=== PATIENT | female | born 1955 | race Caucasian/White ===

== ENCOUNTER → 2021-09-24 13:28 | Outpatient (BNVA) | payer MEDICARE, BC, SELFPAY | PROVIDERS: PCP Internal Medicine; Visit Provider Psychiatry & Neurology Neurology | DX: G20 Parkinson's disease (principal); R25.1 Tremor, unspecified | CPT/HCPCS: 99212 ==

== ENCOUNTER → 2022-06-24 13:49 | Outpatient (BNVA) | payer MEDICARE, BC, SELFPAY | PROVIDERS: PCP Internal Medicine; Visit Provider Psychiatry & Neurology Neurology | DX: G20 Parkinson's disease (principal); G24.9 Dystonia, unspecified; M54.9 Dorsalgia, unspecified | CPT/HCPCS: 99212 ==

== ENCOUNTER → 2022-09-14 15:51 | Outpatient (BNVA) | payer MEDICARE, BC, SELFPAY | PROVIDERS: PCP Internal Medicine; Visit Provider Psychiatry & Neurology Neurology | DX: G20 Parkinson's disease (principal); G24.9 Dystonia, unspecified; M54.9 Dorsalgia, unspecified | CPT/HCPCS: 99212 ==

== ENCOUNTER 2023-01-28 14:12 | Outpatient (AMB) | payer MEDICARE, BC, SELFPAY ==
--- NOTE | 2023-01-28 14:15 | MHC.OFFVIS ---
Intake Vital Signs 01/28/23 14:21 Weight 173 lb BP 118/76 Blood Pressure Location Lt brachial Position Sitting Pulse 75 Pulse Source Pulse Oximeter Pulse Oximetry (%) 98 Oxygen Delivery Method Room Air Intake Visit Reasons: 4m follow up parkinsons-CONFIRMED Intake Note: Pt presents for Parkinsons fup Allergies No Known Allergies Allergy (Verified 01/28/23 14:24) Medication List - Last Reconciled 01/28/23 by Natasha Toscano MD amantadine HCl 100 mg PO DAILY apixaban (Eliquis) 5 mg PO BID aspirin 81 mg PO DAILY atorvastatin 20 mg PO DAILY carbidopa-levodopa 25-100 mg 1 tab PO .5 times a day 90 days levothyroxine (Levoxyl) 75 mcg PO DAILY metoprolol succinate ER 25 mg PO QDAY metronidazole 0.75% 1 appl topical DAILY multivitamin 1 tab PO DAILY HPI HPI Comments History of Present Illness Details 67y/o right handed female comes for follow up of Parkinsons disease.she had a stroke on November 09 2022 - expressive aphasia, dizziness , right leg weakness . SHe was admitted at [facility] -MRI Brain showed a stroke.she recovered in less than 1 hr. she was in rehab , no residual effects.Loop monitor showed paroxysmal atrial fibrillation and is now on Eliquis. she has home PT and OT . Her balance is poor but no falls. she uses a walker . she has stiffness in her lower backHer Xray showed compression fractures . she Denies pain She is doing good. Memory is good. SLeep- good no active dreams Mood- good She is motivated No drooling. speech is good Handwriting- smaller She is independent in all ADLs. Tremors are well controlled. she is exercising regularly. No problem dressing or eating No hallucinations Bowel movements are stable. [facility] Medical History (Updated 01/28/23 @ 14:52 by Natasha Toscano MD) Sleep disorder Atrial fibrillation CVA (cerebral vascular accident) Arthritis Hypothyroidism Hyperlipidemia HTN (hypertension) Surgical History History of tooth extraction History of hip surgery Family History Father Cancer Mother HTN (hypertension) Thyroid disease Family/Other Seizures Family/Other Thyroid disease Social History Alcohol intake: current Alcohol intake frequency: 0-2 drinks per day Patient Tobacco Use Status: Never used Tobacco Use of substances other than those prescribed or required for medical reasons: No Physical Exam Vital Signs: Last Vital Signs Pulse 75 01/28/23 14:21 BP 118/76 01/28/23 14:21 Pulse Ox 98 01/28/23 14:21 Oxygen Delivery Method Room Air 01/28/23 14:21 Const General: cooperative, healthy appearing and comfortable Nutritional Appearance: body habitus not average Orientation/consciousness: patient oriented x3 Neuro Other: mildly decreased blink , facial expression speech normal Bradykinesia - r.L FFM severely decreased R>LFoot taps decreased R>L gait slow small steps General: patient oriented x3 Assessment & Plan Assessment & Plan (1) Parkinson's disease: Code(s): G20 - Parkinson's disease (2) Dyskinesia: Code(s): G24.9 - Dystonia, unspecified (3) Back pain: Code(s): M54.9 - Dorsalgia, unspecified (4) CVA (cerebral vascular accident): Code(s): I63.9 - Cerebral infarction, unspecified Plan Increase sinemet 25/100 1 tab 5 times a day amantadine 100mg qd XR LS spine shows compression fractures - discussed about kyphoplasty , she is not in pain so declines F/u with cardiology SLeep study to r/o sleep apnea. Continue exercise Orders: Orders RT home sleep study Today G47.9 - Sleep disorder, unspecified, I48.91 - Unspecified atrial fibrillation Medications: Changed From carbidopa-levodopa 25-100 mg 1 tab PO QID 90 days 360 tabs 3RF To carbidopa-levodopa 25-100 mg 1 tab PO .5 times a day 450 tabs 3RF 90 days Coding Level of Care Code Est Pt Level 4 (65398) Diagnoses Parkinson's disease G20 Dyskinesia G24.9 Back pain M54.9 CVA (cerebral vascular accident) I63.9
[2023-01-28 14:21] VITALS: BP 118/76; PULSE 75; O2SAT 98
== END 2023-01-28 14:55 | disposition home or self-care (01) ==
PROVIDERS: Visit Provider Psychiatry & Neurology Neurology
DX: G20 Parkinson's disease (principal); G24.01 Drug induced subacute dyskinesia; T42.8X Poisoning by, adverse effect of and underdosing of antiparkinsonism drugs and other central muscle-tone depressants; I69.398 Other sequelae of cerebral infarction; M54.9 Dorsalgia, unspecified
CPT/HCPCS: 99214

== ENCOUNTER → 2023-01-28 14:12 | Outpatient (BNVA) | payer MEDICARE, BC, SELFPAY | PROVIDERS: Visit Provider Psychiatry & Neurology Neurology | DX: G20 Parkinson's disease (principal); G24.9 Dystonia, unspecified; M54.9 Dorsalgia, unspecified; Z86.73 Personal history of transient ischemic attack (TIA), and cerebral infarction without residual deficits; Z79.899 Other long term (current) drug therapy | CPT/HCPCS: 99212 ==

== ENCOUNTER → 2023-03-14 14:48 | Outpatient (REF) | payer MEDICARE, BC, SELFPAY | LOC: HO.SL 14:48 | PROVIDERS: PCP Internal Medicine; Visit Provider Psychiatry & Neurology Neurology | DX: G47.9 Sleep disorder, unspecified (principal); I48.91 Unspecified atrial fibrillation | CPT/HCPCS: 95806 ==

== ENCOUNTER → 2023-03-14 15:03 | Outpatient (BNV) | payer MEDICARE, BC, SELFPAY | PROVIDERS: PCP Internal Medicine; Visit Provider Psychiatry & Neurology Neurology | DX: R06.83 Snoring (principal) | CPT/HCPCS: 95806 ==

== ENCOUNTER → 2023-06-13 14:45 | Outpatient (BNVA) | payer MEDICARE, BC, SELFPAY | PROVIDERS: PCP Internal Medicine; Visit Provider Psychiatry & Neurology Neurology | DX: G20.A1 Parkinson's disease without dyskinesia, without mention of fluctuations (principal); G24.9 Dystonia, unspecified; M54.9 Dorsalgia, unspecified; Z86.73 Personal history of transient ischemic attack (TIA), and cerebral infarction without residual deficits; Z79.899 Other long term (current) drug therapy | CPT/HCPCS: 99212 ==

== ENCOUNTER 2023-06-13 14:56 | Outpatient (AMB) | payer MEDICARE, BC, SELFPAY ==
--- NOTE | 2023-06-13 15:23 | A.OFFVIS_ITS ---
Intake Vital Signs 06/13/23 15:25 Height 5 ft 2 in Weight 175 lb BMI 32.0 BP 154/82 H Blood Pressure Location Lt brachial Position Sitting Respiration 18 Pulse 72 Pulse Source Pulse Oximeter Pulse Oximetry (%) 97 Oxygen Delivery Method Room Air Intake Visit Reasons: 3 mnts f/u - CONF Intake Note: Pt presents for a 5 month follow up for Parkinson's. Hematology Oncology Consultant Required: No Allergies No Known Allergies Allergy (Verified 06/13/23 15:25) Medication List - Last Reconciled 06/13/23 by Natasha Toscano MD amantadine HCl 100 mg PO DAILY apixaban (Eliquis) 5 mg PO BID aspirin 81 mg PO DAILY atorvastatin 20 mg PO DAILY carbidopa-levodopa 25-100 mg 1 tab PO .5 times a day 90 days levothyroxine (Levoxyl) 75 mcg PO DAILY metoprolol succinate ER 25 mg PO QDAY metronidazole 0.75% 1 appl topical DAILY multivitamin 1 tab PO DAILY HPI HPI Comments History of Present Illness Details 68y/o right handed female comes for foll ow up of Parkinsons disease. Her balance is poor but no falls. she uses a walker . she has stiffness in her lower back Her Xray showed compression fractures . she Denies pain She is doing good. Memory is good. SLeep- good no active dreams - vivid dreams Mood- good She is motivated. she is trying tod o exercises that home Pt taught her No drooling. speech is good Handwriting- smaller She is independent in all ADLs.she uses a shower chair and her helps with washing her hair. Tremors are well controlled. she is exercising regularly. No problem dressing or eating No hallucinations Bowel movements are stable. [facility] Medical History Sleep disorder Atrial fibrillation CVA (cerebral vascular accident) Arthritis Hypothyroidism Hyperlipidemia HTN (hypertension) Surgical History History of tooth extraction History of hip surgery Family History Father Cancer Mother HTN (hypertension) Thyroid disease Family/Other Seizures Family/Other Thyroid disease Social History Alcohol intake: current Alcohol intake frequency: 0-2 drinks per day Patient Tobacco Use Status: Never used Tobacco Physical Exam Vital Signs: Last Vital Signs Pulse 72 06/13/23 15:25 Resp 18 06/13/23 15:25 BP 154/82 H 06/13/23 15:25 Pulse Ox 97 06/13/23 15:25 Oxygen Delivery Method Room Air 06/13/23 15:25 BMI result Body Mass Index 32.0 Const General: cooperative, healthy appearing and comfortable Nutritional Appearance: body habitus not average Orientation/consciousness: patient oriented x3 Neuro Other: mildly decreased blink , facial expression speech normal Bradykinesia - r.L FFM severely decreased R>LFoot taps decreased R>L gait slow small steps General: patient oriented x3 Assessment & Plan Assessment & Plan (1) Parkinson's disease: Code(s): G20 - Parkinson's disease (2) Dyskinesia: Code(s): G24.9 - Dystonia, unspecified (3) Back pain: Code(s): M54.9 - Dorsalgia, unspecified (4) CVA (cerebral vascular accident): Code(s): I63.9 - Cerebral infarction, unspecified Plan sinemet 25/100 1 tab 5 times a day amantadine 100mg qd XR LS spine shows compression fractures - discussed about kyphoplasty , she is not in pain so declines F/u with cardiology SLeep study to r/o sleep apnea- normal Continue exercise will restart home PT as needed Medications: Refilled carbidopa-levodopa 25-100 mg 1 tab PO .5 times a day 90 days 450 tabs 3RF amantadine HCl 100 mg PO DAILY 30 caps 6RF Coding Level of Care Code Est Pt Level 4 (56168) Diagnoses Parkinson's disease G20 Dyskinesia G24.9 Back pain M54.9 CVA (cerebral vascular accident) I63.9
[2023-06-13 15:25] VITALS: BP 154/82; PULSE 72; RESP 18; O2SAT 97; BMI 32.0
== END 2023-06-13 15:54 | disposition home or self-care (01) ==
PROVIDERS: PCP Internal Medicine; Visit Provider Psychiatry & Neurology Neurology
DX: G20.B1 Parkinson's disease with dyskinesia, without mention of fluctuations (principal); M54.9 Dorsalgia, unspecified; I69.398 Other sequelae of cerebral infarction
CPT/HCPCS: 99214

== ENCOUNTER 2023-12-30 13:33 | Outpatient (AMB) | payer MEDICARE, BC, SELFPAY ==
--- NOTE | 2023-12-30 13:39 | A.OFFVIS_ITS ---
Vital Signs 12/30/23 13:41 Height 5 ft 2 in Weight 165 lb BMI 30.2 BP 138/76 Blood Pressure Location Rt brachial Position Sitting Respiration 16 Pulse 64 Pulse Source Pulse Oximeter Pulse Oximetry (%) 97 Oxygen Delivery Method Room Air Intake Visit Reasons: 6m follow up - Confirmed Intake Note: Pt presents to the office for a 6 month follow up for Parkinson's and back pain. [employer]ular Knife [employer] Machine Required: No Allergies No Known Allergies Allergy (Verified 12/30/23 13:41) Medication List - Last Reconciled 12/30/23 by Natasha Toscano MD amantadine HCl 100 mg PO DAILY apixaban (Eliquis) 5 mg PO BID aspirin 81 mg PO DAILY atorvastatin 20 mg PO DAILY carbidopa-levodopa 25-100 mg 1 tab PO .5 times a day 90 days levothyroxine (Levoxyl) 75 mcg PO DAILY metoprolol succinate ER 25 mg PO QDAY metronidazole 0.75% 1 appl topical DAILY multivitamin 1 tab PO DAILY HPI Comments Details: 68y/o right handed female comes for follow up of Parkinsons disease. No falls she uses a walker . she has stiffness in her lower back Her Xray showed compression fractures . she Denies pain She is doing good. Memory is good. SLeep- good no active dreams - vivid dreams Mood- good She is motivated. she is trying tod o exercises that home Pt taught her No drooling. speech is good Handwriting- smaller She is independent in all ADLs.she uses a shower chair and her helps with washing her hair. Tremors are well controlled. she is exercising regularly. No problem dressing or eating No hallucinations Bowel movements are stable. [facility] Medical History Parkinson's disease with fluctuating manifestations Sleep disorder Atrial fibrillation CVA (cerebral vascular accident) Arthritis Hypothyroidism Hyperlipidemia HTN (hypertension) Surgical History History of tooth extraction History of hip surgery Family History Father Cancer Mother HTN (hypertension) Thyroid disease Family/Other Seizures Family/Other Thyroid disease Social History Alcohol intake: current Alcohol intake frequency: 0-2 drinks per day Patient Tobacco Use Status: Never used Tobacco Physical Exam Vital Signs: Last Vital Signs Pulse 64 12/30/23 13:41 Resp 16 12/30/23 13:41 BP 138/76 12/30/23 13:41 Pulse Ox 97 12/30/23 13:41 Oxygen Delivery Method Room Air 12/30/23 13:41 BMI result Body Mass Index 30.2 Const General: cooperative, healthy appearing and comfortable Nutritional Appearance: body habitus not average Orientation/consciousness: patient oriented x3 Neuro Other: mildly decreased blink , facial expression speech normal Bradykinesia - r.L FFM severely decreased R>LFoot taps decreased R>L gait slow small steps General: patient oriented x3 Assessment & Plan Assessment & Plan (1) Parkinson's disease with fluctuating manifestations: Code(s): G20.A2 - Parkinson's disease without dyskinesia, with fluctuations Category: Medical (2) Back pain: Code(s): M54.9 - Dorsalgia, unspecified Category: Medical (3) CVA (cerebral vascular accident): Code(s): I63.9 - Cerebral infarction, unspecified Category: Medical Plan sinemet 25/100 1 tab 5 times a day amantadine 100mg qd XR LS spine shows compression fractures - discussed about kyphoplasty , she is not in pain so declines F/u with cardiology SLeep study to r/o sleep apnea- normal Continue exercise will restart home PT Orders: [facility]errals [facility] Referral G20.A2 - Parkinson's disease without dyskinesia, with fluctuations Coding Level of Care Code Est Pt Level 4 (73550) Complex EM visit Add On G2211 Diagnoses Parkinson's disease with fluctuating manifestations G20.A2 Back pain M54.9 CVA (cerebral vascular accident) I63.9
[2023-12-30 13:41] VITALS: BP 138/76; PULSE 64; RESP 16; O2SAT 97; BMI 30.2
== END 2023-12-30 14:11 | disposition home or self-care (01) ==
PROVIDERS: PCP Internal Medicine; Visit Provider Psychiatry & Neurology Neurology
DX: G20.A2 Parkinson's disease without dyskinesia, with fluctuations (principal); M54.9 Dorsalgia, unspecified; I69.398 Other sequelae of cerebral infarction
CPT/HCPCS: 99214; G2211

== ENCOUNTER → 2023-12-30 13:33 | Outpatient (BNVA) | payer MEDICARE, BC, SELFPAY | PROVIDERS: PCP Internal Medicine; Visit Provider Psychiatry & Neurology Neurology | DX: G20.A2 Parkinson's disease without dyskinesia, with fluctuations (principal); M54.9 Dorsalgia, unspecified; Z86.73 Personal history of transient ischemic attack (TIA), and cerebral infarction without residual deficits | CPT/HCPCS: 99212 ==

== ENCOUNTER 2024-10-23 15:20 | Outpatient (AMB) | payer MEDICARE, BC, SELFPAY ==
--- NOTE | 2024-10-23 15:23 | MHC.OFFVIS ---
Vital Signs 10/23/24 15:26 Height 5 ft 2 in Weight 171 lb BMI 31.3 BP 128/78 Blood Pressure Location Rt brachial Position Sitting Pulse 76 Pulse Source Pulse Oximeter Pulse Oximetry (%) 98 Oxygen Delivery Method Room Air Intake Visit Reasons: f/u appt Intake Note: Patient following up for Parkinson's disease without dyskinesia. [facility] consult note scanned 05/04/24 Allergies No Known Allergies Allergy (Verified 10/23/24 15:27) Medication List - Last Reconciled 10/23/24 by Natasha Toscano MD amantadine HCl 100 mg PO DAILY apixaban (Eliquis) 5 mg PO BID aspirin 81 mg PO DAILY atorvastatin 20 mg PO DAILY carbidopa-levodopa 25-100 mg 1 tab PO .5 times a day 90 days levothyroxine (Levoxyl) 75 mcg PO DAILY metoprolol succinate ER 25 mg PO QDAY metronidazole 0.75% 1 appl topical DAILY multivitamin 1 tab PO DAILY HPI Comments Details: 69y/o right handed female comes for follow up of Parkinsons disease. Her suddenly last month. She started home PT and occupational Therapy.she had 1 fall getting out of bed.she has a [employer] and friend that helps her. Her son lives with her. History from last visit- No falls she uses a walker . she has stiffness in her lower back Her Xray showed compression fractures . she Denies pain She is doing good. Memory is good. SLeep- good no active dreams - vivid dreams Mood- good She is motivated. she is trying tod o exercises that home Pt taught her No drooling. speech is good Handwriting- smaller She is independent in all ADLs.she uses a shower chair Tremors are well controlled. she is exercising regularly. No problem dressing or eating No hallucinations Bowel movements are stable. [facility] Medical History Parkinson's disease with fluctuating manifestations Sleep disorder Atrial fibrillation CVA (cerebral vascular accident) Arthritis Hypothyroidism Hyperlipidemia HTN (hypertension) Surgical History History of tooth extraction History of hip surgery Family History Father Cancer Mother HTN (hypertension) Thyroid disease Family/Other Seizures Family/Other Thyroid disease Social History Alcohol intake: current Alcohol intake frequency: 0-2 drinks per day Patient Tobacco Use Status: Never used Tobacco Physical Exam Vital Signs: Last Vital Signs Pulse 76 10/23/24 15:26 BP 128/78 10/23/24 15:26 Pulse Ox 98 10/23/24 15:26 Oxygen Delivery Method Room Air 10/23/24 15:26 BMI result Body Mass Index 31.3 Const General: cooperative, healthy appearing and comfortable Nutritional Appearance: body habitus not average Orientation/consciousness: patient oriented x3 Neuro Other: mildly decreased blink , facial expression speech normal Bradykinesia - r.L Mild to moderate dyskinesias FFM severely decreased R>LFoot taps decreased R>L gait slow small steps General: patient oriented x3 Assessment & Plan Assessment & Plan (1) Parkinson's disease with fluctuating manifestations: Code(s): G20.A2 - Parkinson's disease without dyskinesia, with fluctuations Category: Medical Qualifiers: Dyskinesia presence: with dyskinesia Qualified Code(s): G20.B2 - Parkinson's disease with dyskinesia, with fluctuations Plan sinemet 25/100 1 tab 5 times a day I will trial her on carbidopa/levodopa er 25/100 Consider rachel ramirez amantadine 100mg qd XR LS spine shows compression fractures - discussed about kyphoplasty , she is not in pain so declines F/u with cardiology SLeep study to r/o sleep apnea- normal Continue exercise home PT Medications: New carbidopa-levodopa 25-100 mg ER 1 tab PO BEDTIME 30 tabs 6RF Coding Level of Care Code Est Pt Level 4 (48551) Complex EM visit Add On G2211 Diagnoses Parkinson's disease with dyskinesia and fluctuating manifestations G20.B2 Dyskinesia presence: with dyskinesia
[2024-10-23 15:26] VITALS: BP 128/78; PULSE 76; O2SAT 98; BMI 31.3
--- OUTSIDE RECORDS SUMMARY | 2024-10-23 17:51 | XMS_ITS | Clinical Summary ---
Author Organization Unknown Care Team Providers Care Veneer Sheet Repairer Name Role Phone JAVIER AYALA DO Unavailable Unavailable SABRINA OT, DEVIN Unavailable Unavailbrian HSOEMAKER RN, SHERITA Unavailable Unavailable JOSÉM IGUEL ([facility]) [facility] - PT, JASPAL Unavailable Unavailable NNEKA ([facility]) [facility] - COATING MIXER SUPERVISOR, JERRY Unavailable Un available Payers Payer Name Policy Type Policy Number Effective Date Expira tion Date MEDICARE - [facility] - [place] [id number] Problems Condition Name Condition Details Condition Category Status Onset Date Resolution Date Last Treatment Date Treating Clinician Comments 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 Active 05-09 00:00: 00 PAROXYSMAL ATRIAL FIBRILLATION Active 05-09 00:00: 00 HYPERTENSIVE CHRONIC KIDNEY DISEASE W STG 1-4/UNSP CHR KDNY Active 05-09 00:00: 00 CHRONIC KIDNEY DISEASE, STAGE 3A Active 05-09 00:00: 00 PARKINSON'S DIS 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, W/O MENTION OF FLUCTUATIONS Active 05-09 00:00: 00 IMPACTED CERUMEN, BILATERAL Active 05-09 00:00: 00 HYPOTHYROIDI SM, UNSPECIFIED Active 05-09 00:00: 00 HYPERLIPIDEM IA, UNSPECIFIED Active 05-09 00:00: 00 SLEEP DISORDER, UNSPECIFIED Active 05-09 00:00: 00 UNSPECIFIED OSTEOARTHRIT IS, UNSPECIFIED SITE Active 05-09 00:00: 00 PRSNL HX OF TIA (TIA), AND CEREB INFRC W/O RESID DEFICITS Active 05-09 00:00: 00 Problems related to health literacy Active 05-09 00:00: 00 PRESENCE OF RIGHT ARTIFICIAL HIP JOINT Active 05-09 00:00: 00 [facility] (CURRENT) USE OF ANTICOAGULAN TS Active 05-09 00:00: 00 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 Ordering Clinician Indication Dosage Frequency Signature (SIG) Comments Components atorvastati n 20 mg tablet 11-22 00:00: 00 01-15 23:59 :00 No [id number] 1 tablet BEDTIME 1 tablet BEDTIME (route: oral) Med Classific ation: Cardiovas cular Therapy Agents levothyroxi ne 75 mcg tablet 11-22 00:00: 00 01-15 23:59 :00 No [id number] 1 tablet DAILY 1 tablet DAILY (route: oral) Med Classific ation: Endocrine metronidazo le 0.75 % topical gel 11-22 00:00: 00 01-15 23:59 :00 No [id number] 1 cm DAILY 1 cm DAILY (route: topical) Med Classific ation: Dermatolo gical amantadine HCl 100 mg capsule 11-30 00:00: 00 01-15 23:59 :00 No [id number] 1 capsule DAILY 1 capsule DAILY (route: oral) Med Classific ation: Central Nervous System Agents aspirin 81 mg tablet,orlin yed release 11-30 00:00: 00 01-15 23:59 :00 No [id number] 1 tablet DAILY 1 tablet DAILY (route: oral) Med Classific ation: Hematolog ical Agents carbidopa 25 mg-levodopa 100 mg disintegrat ing tablet 11-30 00:00: 00 01-15 23:59 :00 No [id number] 1 tablet 4 TIMES DAILY 1 tablet 4 TIMES DAILY (route: oral) Med Classific ation: Central Nervous System Agents multivitami n with minerals tablet 11-30 00:00: 00 01-15 23:59 :00 No [id number] 1 tablet DAILY 1 tablet DAILY (route: oral) Med Classific ation: Electroly te Balance-N utritiona l Products Senna with Docusate Sodium 8.6 mg-50 mg tablet 11-30 00:00: 00 01-15 23:59 :00 No [id number] 1 tablet BEDTIME 1 tablet BEDTIME (route: oral) Med Classific ation: Gastroint estinal Therapy Agents Tylenol 325 mg tablet 11-30 00:00: 00 01-15 23:59 :00 No [id number] 2 tablet NEEDED 2 tablet NEEDED (route: oral) Med Classific ation: Analgesic , Anti-infl ammatory or Antipyret ic Eliquis 5 mg tablet 01-05 00:00: 00 01-15 23:59 :00 No [id number] 1 tablet 2 TIMES DAILY 1 tablet 2 TIMES DAILY (route: oral) Med Classific ation: Hematolog ical Agents metoprolol succinate ER 25 mg tablet,exte nded release 24 hr 01-05 00:00: 00 01-15 23:59 :00 No [id number] 1 tablet DAILY 1 tablet DAILY (route: oral) Med Classific ation: Cardiovas cular Therapy Agents amantadine HCl 100 mg capsule 02-01 00:00: 00 09-17 23:59 :00 No [id number] 1 capsule DAILY 1 capsule DAILY (route: oral) Med Classific ation: Central Nervous System Agents aspirin 81 mg tablet,orlin yed release 02-01 00:00: 00 09-17 23:59 :00 No [id number] 1 tablet DAILY 1 tablet DAILY (route: oral) Med Classific ation: Hematolog ical Agents atorvastati n 20 mg tablet 02-01 00:00: 00 09-17 23:59 :00 No [id number] 1 tablet BEDTIME 1 tablet BEDTIME (route: oral) Med Classific ation: Cardiovas cular Therapy Agents carbidopa 25 mg-levodopa 100 mg disintegrat ing tablet 02-01 00:00: 00 09-17 23:59 :00 No [id number] 1 tablet 4 TIMES DAILY 1 tablet 4 TIMES DAILY (route: oral) Med Classific ation: Central Nervous System Agents Eliquis 5 mg tablet 02-01 00:00: 00 09-17 23:59 :00 No [id number] 1 tablet 2 TIMES DAILY 1 tablet 2 TIMES DAILY (route: oral) Med Classific ation: Hematolog ical Agents levothyroxi ne 75 mcg tablet 02-01 00:00: 00 09-17 23:59 :00 No [id number] 1 tablet DAILY 1 tablet DAILY (route: oral) Med Classific ation: Endocrine metoprolol succinate ER 25 mg tablet,exte nded release 24 hr 02-01 00:00: 00 09-17 23:59 :00 No [id number] 1 tablet DAILY 1 tablet DAILY (route: oral) Med Classific ation: Cardiovas cular Therapy Agents Multivitami n 50 Plus tablet 02-01 00:00: 00 09-17 23:59 :00 No [id number] 1 tablet DAILY 1 tablet DAILY (route: oral) Med Classific ation: Electroly te Balance-N utritiona l Products Senna with Docusate Sodium 8.6 mg-50 mg tablet 02-01 00:00: 00 09-17 23:59 :00 No [id number] 1 tablet DAILY 1 tablet DAILY (route: oral) Med Classific ation: Gastroint estinal Therapy Agents amantadine HCl 100 mg capsule 09-20 00:00: 00 Yes [id number] 1 capsule DAILY 1 capsule DAILY (route: oral) Med Classific ation: Central Nervous System Agents aspirin 81 mg tablet,orlin yed release 09-20 00:00: 00 Yes [id number] 1 tablet DAILY 1 tablet DAILY (route: oral) Med Classific ation: Hematolog ical Agents atorvastati n 20 mg tablet 09-20 00:00: 00 Yes [id number] 1 tablet DAILY 1 tablet DAILY (route: oral) Med Classific ation: Cardiovas cular Therapy Agents carbidopa 25 mg-levodopa 100 mg disintegrat ing tablet 09-20 00:00: 00 Yes [id number] 1 tablet DIRECTED 1 tablet DIRECTED (route: oral) Med Classific ation: Central Nervous System Agents Eliquis 5 mg tablet 09-20 00:00: 00 Yes [id number] 1 tablet 2 TIMES DAILY 1 tablet 2 TIMES DAILY (route: oral) Med Classific ation: Hematolog ical Agents levothyroxi ne 75 mcg tablet 09-20 00:00: 00 Yes [id number] 1 tablet DAILY 1 tablet DAILY (route: oral) Med Classific ation: Endocrine metoprolol succinate ER 25 mg tablet,exte nded release 24 hr 09-20 00:00: 00 Yes [id number] 1 tablet DAILY 1 tablet DAILY (route: oral) Med Classific ation: Cardiovas cular Therapy Agents Multivitami n 50 Plus tablet 09-20 00:00: 00 Yes [id number] 1 tablet DAILY 1 tablet DAILY (route: oral) Med Classific ation: Electroly te Balance-N utritiona l Products cyanocobala min (vit B-12) 1,000 mcg/mL injection solution 09-20 00:00: 00 Yes [id number] Per instruc tions MONTHLY Per instructio ns MONTHLY (route: injection) Med Classific ation: Electroly te Balance-N utritiona l Products Immunizations Ordered Immunization Name Filled Immunization Name Date Status Comments Refusal Reason PNEUMOCOCCAL (PPV), PPV 2023-09-19 00:00:00 COVID-19, COVID-19 2023-03-28 00:00:00 Vital Signs Vital Name Observation Time Observation Value Commen ts Temperature 2024-10-17 10:13:00.000 97.4 [degF] Temperature 2024-10-15 10:30:00.000 97.4 [degF] Temperature 2024-10-15 09:52:00.000 98 [degF] Temperature 2024-10-11 10:30:00.000 97.4 [degF] Temperature 2024-10-04 13:16:00.000 97.1 [degF] Temperature 2024-10-04 10:46:00.000 97.8 [degF] Temperature 2024-09-20 11:32:00.000 97.9 [degF] BMI (%) 2024-09-20 11:32:00.000 14 kg/m2 Height 2024-09-20 11:32:00.000 90 [in_us] Pulse 2024-10-22 10:30:00.000 86 /min Pulse 2024-10-17 10:13:00.000 76 /min Pulse 2024-10-16 16:08:00.000 78 /min Pulse 2024-10-15 10:30:00.000 72 /min Pulse 2024-10-15 09:52:00.000 72 /min Pulse 2024-10-11 10:30:00.000 74 /min Pulse 2024-10-04 13:16:00.000 77 /min Pulse 2024-10-04 10:46:00.000 62 /min Pulse 2024-09-26 02:24:00.000 76 /min Pulse 2024-09-20 11:32:00.000 63 /min O2 Saturation (%) 2024-10-22 10:30:00.000 100 % O2 Saturation (%) 2024-10-16 16:08:00.000 96 % O2 Saturation (%) 2024-10-15 09:52:00.000 98 % O2 Saturation (%) 2024-10-04 10:46:00.000 95 % O2 Saturation (%) 2024-09-26 02:24:00.000 98 % O2 Saturation (%) 2024-09-20 11:32:00.000 98 % Respirations 2024-10-17 10:13:00.000 18 /min Respirations 2024-10-15 10:30:00.000 18 /min Respirations 2024-10-15 09:52:00.000 20 /min Respirations 2024-10-11 10:30:00.000 18 /min Respirations 2024-10-04 13:16:00.000 16 /min Respirations 2024-10-04 10:46:00.000 18 /min Respirations 2024-09-20 11:32:00.000 20 /min Weight (lbs) 2024-09-20 11:32:00.000 165 [lb_av] Systolic Blood Pressure 2024-10-22 10:30:00.000 100 mm [Hg] Systolic Blood Pressure 2024-10-17 10:13:00.000 118 mm [Hg] Systolic Blood Pressure 2024-10-16 16:08:00.000 122 mm [Hg] Systolic Blood Pressure 2024-10-15 10:30:00.000 122 mm [Hg] Systolic Blood Pressure 2024-10-15 09:52:00.000 116 mm [Hg] Systolic Blood Pressure 2024-10-11 10:30:00.000 124 mm [Hg] Systolic Blood Pressure 2024-10-04 13:16:00.000 126 mm [Hg] Systolic Blood Pressure 2024-10-04 10:46:00.000 114 mm [Hg] Systolic Blood Pressure 2024-09-26 02:24:00.000 118 mm [Hg] Systolic Blood Pressure 2024-09-20 11:32:00.000 114 mm [Hg] Diastolic Blood Pressure 2024-10-22 10:30:00.000 68 mm [Hg] Diastolic Blood Pressure 2024-10-17 10:13:00.000 72 mm [Hg] Diastolic Blood Pressure 2024-10-16 16:08:00.000 60 mm [Hg] Diastolic Blood Pressure 2024-10-15 10:30:00.000 70 mm [Hg] Diastolic Blood Pressure 2024-10-15 09:52:00.000 70 mm [Hg] Diastolic Blood Pressure 2024-10-11 10:30:00.000 76 mm [Hg] Diastolic Blood Pressure 2024-10-04 13:16:00.000 74 mm [Hg] Diastolic Blood Pressure 2024-10-04 10:46:00.000 74 mm [Hg] Diastolic Blood Pressure 2024-09-26 02:24:00.000 64 mm [Hg] Diastolic Blood Pressure 2024-09-20 11:32:00.000 72 mm [Hg] Plan of Treatment Planned Activity Planned Date Details Comments Future Scheduled Test SKILLED NU RSE TO EVALUATE PATIENT, IDENTIFY PRIMARY AND CO-MORBID CONDITIONS CODED PER CODING GUIDELINES, AND DEVELOP PATIENT SPECIFIC PLAN OF CARE THAT INCLUDES PATIENT GOAL FOR HOME HEALTH. [code = SKILLED NURSE TO EVALUATE PATIENT, IDENTIFY PRIMARY AND CO-MORBID CONDITIONS CODED PER CODING GUIDELINES, AND DEVELOP PATIENT SPECIFIC PLAN OF CARE THAT INCLUDES PATIENT GOAL FOR HOME HEALTH.] Future Scheduled Test SKILLED NU RSE FOR O/A, TEACHING AND MANAGEMENT OF CKD FOR EARLY IDENTIFICATION OF EXACERBATION OF DISEASE PROCESS [code = SKILLED NURSE FOR O/A, TEACHING AND MANAGEMENT OF CKD FOR EARLY IDENTIFICATION OF EXACERBATION OF DISEASE PROCESS] Future Scheduled Test OCCUPATION AL THERAPIST TO EVALUATE PATIENT FOR ADLS [code = OCCUPATIONAL THERAPIST TO EVALUATE PATIENT FOR ADLS] Future Scheduled Test SKILLED NU RSE FOR O/A AND TEACHING OF ENDOCRINE SYSTEM TO IDENTIFY CHANGES ASSOCIATED WITH EXACERBATION OF HYPOTHYROIDISM FOR EARLY INTERVENTION OF COMPLICATIONS. [code = SKILLED NURSE FOR O/A AND TEACHING OF ENDOCRINE SYSTEM TO IDENTIFY CHANGES ASSOCIATED WITH EXACERBATION OF HYPOTHYROIDISM FOR EARLY INTERVENTION OF COMPLICATIONS.] Future Scheduled Test PHYSICAL T HERAPIST TO EVALUATE PATIENT FOR STRENGTHENING MOBILITY AND ENDURANCE [code = PHYSICAL THERAPIST TO EVALUATE PATIENT FOR STRENGTHENING MOBILITY AND ENDURANCE ] Future Scheduled Test SKILLED NU RSE TO INSTRUCT PATIENT/CAREGIVER ON SIGNS AND SYMPTOMS AND METHODS TO MANAGE PARKINSON'S DISEASE PROGRESSION. [code = SKILLED NURSE TO INSTRUCT PATIENT/CAREGIVER ON SIGNS AND SYMPTOMS AND METHODS TO MANAGE PARKINSON'S DISEASE PROGRESSION.] Future Scheduled Test SKILLED NU RSE TO INSTRUCT PATIENT/CAREGIVER ON SIGNS AND SYMPTOMS, RISK FACTORS, COMPLICATIONS, AND MANAGEMENT OF ATRIAL FIBRILLATION. [code = SKILLED NURSE TO INSTRUCT PATIENT/CAREGIVER ON SIGNS AND SYMPTOMS, RISK FACTORS, COMPLICATIONS, AND MANAGEMENT OF ATRIAL FIBRILLATION.] Future Scheduled Test SKILLED NU RSE TO PROVIDE TEACHING ON SIGNS AND SYMPTOMS AND MANAGEMENT OF HYPERTENSION. [code = SKILLED NURSE TO PROVIDE TEACHING ON SIGNS AND SYMPTOMS AND MANAGEMENT OF HYPERTENSION.] Future Scheduled Test SKILLED NU RSE TO INSTRUCT PATIENT/CAREGIVER ON WARNING SIGNS OF CVA, RISK FACTORS, AND METHODS TO MANAGE FCI EFFECTS OF CVA. [code = SKILLED NURSE TO INSTRUCT PATIENT/CAREGIVER ON WARNING SIGNS OF CVA, RISK FACTORS, AND METHODS TO MANAGE FCI EFFECTS OF CVA.] Future Scheduled Test SKILLED NU RSE FOR O/A AND SKILLED TEACHING RELATED TO SIGNS AND SYMPTOMS AND MANAGEMENT OF VIT B12 DEF PERNICIOUS ANEMIA. [code = SKILLED NURSE FOR O/A AND SKILLED TEACHING RELATED TO SIGNS AND SYMPTOMS AND MANAGEMENT OF VIT B12 DEF PERNICIOUS ANEMIA.] Future Scheduled Test SKILLED NU RSE FOR O/A AND SKILLED TEACHING RELATED TO SIGNS AND SYMPTOMS AND MANAGEMENT OF OA. [code = SKILLED NURSE FOR O/A AND SKILLED TEACHING RELATED TO SIGNS AND SYMPTOMS AND MANAGEMENT OF OA.] Future Scheduled Test PATIENT IBRAHIM S A RISK OF HOSPITALIZATION AND ED USE. SKILLED NURSE TO ESTABLISH SUPPORT MEASURES TO MINIMIZE RISK OF HOSPITALIZATION AND ED USE, AND INSTRUCT PATIENT/CAREGIVER ON METHODS TO REDUCE AVOIDABLE HOSPITALIZATION AND ED USE. [code = PATIENT HAS A RISK OF HOSPITALIZATION AND ED USE. SKILLED NURSE TO ESTABLISH SUPPORT MEASURES TO MINIMIZE RISK OF HOSPITALIZATION AND ED USE, AND INSTRUCT PATIENT/CAREGIVER ON METHODS TO REDUCE AVOIDABLE HOSPITALIZATION AND ED USE.] Future Scheduled Test SKILLED NU RSE TO PROVIDE INSTRUCTION TO PATIENT/CAREGIVER RELATED TO DISCHARGE PLANNING. [code = SKILLED NURSE TO PROVIDE INSTRUCTION TO PATIENT/CAREGIVER RELATED TO DISCHARGE PLANNING.] Future Scheduled Test SKILLED NU RSE TO PERFORM ENVIRONMENTAL SAFETY RISK ASSESSMENT AND FALL RISK ASSESSMENT AND PROVIDE INSTRUCTION TO IMPLEMENT ENVIRONMENTAL SAFETY AND FALL PREVENTION STRATEGIES THROUGHOUT THE CERTIFICATION PERIOD. SKILLED NURSE WILL MAINTAIN SITUATIONAL AWARENESS AND WILL NOTIFY CLINICAL HOME TEACHING GRADES 9 THRU 12 TEACHER AND PHYSICIAN/PROVIDER WITH ANY CHANGE IN CONDITION. [code = SKILLED NURSE TO PERFORM ENVIRONMENTAL SAFETY RISK ASSESSMENT AND FALL RISK ASSESSMENT AND PROVIDE INSTRUCTION TO IMPLEMENT ENVIRONMENTAL SAFETY AND FALL PREVENTION STRATEGIES THROUGHOUT THE CERTIFICATION PERIOD. SKILLED NURSE WILL MAINTAIN SITUATIONAL AWARENESS AND WILL NOTIFY CLINICAL HOME TEACHING GRADES 9 THRU 12 TEACHER AND PHYSICIAN/PROVIDER WITH ANY CHANGE IN CONDITION.] Future Scheduled Test SKILLED NU RSE FOR OBSERVATION AND ASSESSMENT OF PATIENTS PAIN LEVEL AND EFFECTIVENESS OF PAIN MANAGEMENT REGIMEN. SKILLED NURSE TO INSTRUCT PATIENT/CAREGIVER REGARDING PHARMACOLOGIC AND NON-PHARMACOLOGIC PAIN CONTROL MEASURES. SKILLED NURSE TO REPORT TO PHYSICIAN IF PAIN LEVEL IS OUTSIDE OF ESTABLISHED PARAMETERS. [code = SKILLED NURSE FOR OBSERVATION AND ASSESSMENT OF PATIENTS PAIN LEVEL AND EFFECTIVENESS OF PAIN MANAGEMENT REGIMEN. SKILLED NURSE TO INSTRUCT PATIENT/CAREGIVER REGARDING PHARMACOLOGIC AND NON-PHARMACOLOGIC PAIN CONTROL MEASURES. SKILLED NURSE TO REPORT TO PHYSICIAN IF PAIN LEVEL IS OUTSIDE OF ESTABLISHED PARAMETERS.] Future Scheduled Test SKILLED NU RSE TO ASSESS PATIENT'S SKIN INTEGRITY AND INSTRUCT PATIENT/CAREGIVER ON MEASURES TO PREVENT PRESSURE ULCERS. [code = SKILLED NURSE TO ASSESS PATIENT'S SKIN INTEGRITY AND INSTRUCT PATIENT/CAREGIVER ON MEASURES TO PREVENT PRESSURE ULCERS.] Future Scheduled Test SKILLED NU RSE TO REVIEW PATIENT MEDICATIONS (PRESCRIPTION/OTC). INSTRUCT PATIENT/CAREGIVER ON ALL MEDICATIONS INCLUDING PURPOSE, WHEN TO TAKE, IMPORTANCE OF MEDICATION ADHERENCE, MONITORING OF EFFECTIVENESS, ADVERSE DRUG REACTIONS, POSSIBLE SIDE EFFECTS, AND WHEN TO NOTIFY AGENCY OR PHYSICIAN/PROVIDER OF ANY CONCERNS. [code = SKILLED NURSE TO REVIEW PATIENT MEDICATIONS (PRESCRIPTION/OTC). INSTRUCT PATIENT/CAREGIVER ON ALL MEDICATIONS INCLUDING PURPOSE, WHEN TO TAKE, IMPORTANCE OF MEDICATION ADHERENCE, MONITORING OF EFFECTIVENESS, ADVERSE DRUG REACTIONS, POSSIBLE SIDE EFFECTS, AND WHEN TO NOTIFY AGENCY OR PHYSICIAN/PROVIDER OF ANY CONCERNS.] Future Scheduled Test SKILLED NU RSE FOR MEDICATION ADMINISTRATION PER MEDICATION LIST TO BE PERFORMED MONTHLY [code = SKILLED NURSE FOR MEDICATION ADMINISTRATION PER MEDICATION LIST TO BE PERFORMED MONTHLY ] Goal Patient Goal - TO GET STRONG ER Goal Provider Goal - A PLAN OF CARE WILL BE ESTABLISHED THAT MEETS PATIENT'S CARE HOME NEEDS AND INCLUDES PATIENT GOAL FOR HOME HEALTH. Goal Provider Goal - PATIENT/CAREGIVER WILL VERBALIZE UNDERSTANDING OF GENITOURINARY DISEASE PROCESS, AND EXACERBATIONS OF GENITOURINARY DISEASE WILL BE PROMPTLY IDENTIFIED FOR EARLY INTERVENTION THROUGHOUT THE CERTIFICATION PERIOD. Goal Provider Goal - OCCUPATIONAL THERAPY EVALUATION TO BE COMPLETED WITH RECOMMENDATIONS AND WRITTEN PLAN OF TREATMENT ESTABLISHED FOR THE PHYSICIANS SIGNATURE. Goal Provider Goal - PATIENT/CAREGIVER WILL VERBALIZE SIGNS AND SYMPTOMS OF EXACERBATION OF ENDOCRINE DIAGNOSIS TO REPORT TO NURSE/PHYSICIAN THROUGHOUT THE CERTIFICATION PERIOD. Goal Provider Goal - A PHYSICAL THERAPY EVALUATION TO BE COMPLETED WITH RECOMMENDATIONS AND/OR WRITTEN PLAN OF TREATMENT ESTABLISHED FOR PHYSICIANS SIGNATURE. Goal Provider Goal - PATIENT/CAREGIVER WILL VERBALIZE SIGNS AND SYMPTOMS OF PARKINSON'S DISEASE AND DEMONSTRATE METHODS TO MANAGE DISEASE PROCESS BY END OF CERTIFICATION PERIOD. Goal Provider Goal - PATIENT/CAREGIVER WILL VERBALIZE UNDERSTANDING OF SIGNS AND SYMPTOMS, COMPLICATIONS, AND MANAGEMENT OF ATRIAL FIBRILLATION THROUGHOUT THE CERTIFICATION PERIOD. Goal Provider Goal - PATIENT/CAREGIVER WILL VERBALIZE SIGNS AND SYMPTOMS OF HYPERTENSION AND WILL BE ABLE TO DEMONSTRATE ABILITY TO MANAGE EXACERBATION BY END OF THE EPISODE. Goal Provider Goal - PATIENT/CAREGIVER WILL DEMONSTRATE COMPLIANCE WITH TREATMENT REGIME AND VERBALIZE SIGNS AND SYMPTOMS TO REPORT WELL POSSIBLE COMPLICATIONS OF CVA BY END OF EPISODE. Goal Provider Goal - PATIENT/CARGIVER WILL VERBALIZE UNDERSTANDING OF PERNICIOUS ANEMIA INCLUDING SIGNS AND SYMPTOMS, MANAGEMENT OF COMPLICATIONS, AND PRESCRIBED TREATMENT REGIMEN BY END OF EPISODE. Goal Provider Goal - PATIENT/CAREGIVER WILL VERBALIZE UNDERSTANDING OF MUSCULOSKELETAL DISEASE INCLUDING SIGNS AND SYMPTOMS, MANAGEMENT, AND PRESCRIBED TREATMENT REGIMEN BY END OF EPISODE. Goal Provider Goal - PATIENT WILL HAVE SUPPORT MEASURES ESTABLISHED TO PREVENT HOSPITALIZATION AND ED USE AND PATIENT/CAREGIVER WILL VERBALIZE/DEMONSTRATE METHODS TO REDUCE AVOIDABLE HOSPITALIZATION AND ED USE BY END OF EPISODE. Goal Provider Goal - PATIENT/CAREGIVER WILL VERBALIZE UNDERSTANDING OF DISCHARGE PLANNING INSTRUCTIONS BY DATE OF DISCHARGE. Goal Provider Goal - PATIENT/CAREGIVER WILL VERBALIZE/DEMONSTRATE EFFECTIVE ENVIRONMENTAL SAFETY AND FALL PREVENTION STRATEGIES, WILL REMAIN SAFE IN THE COMMUNITY, AND WILL BE FREE OF DANGER TO SELF AND OTHERS THROUGHOUT THE CERTIFICATION PERIOD. Goal Provider Goal - PATIENT/CAREGIVER WILL DEMONSTRATE UNDERSTANDING OF PHARMACOLOGIC AND NONPHARMACOLOGIC PAIN CONTROL MEASURES AND PATIENT WILL HAVE IMPROVEMENT IN PAIN INTERFERING WITH ACTIVITY EVIDENCED BY PAIN AT A LEVEL THAT IS ACCEPTABLE TO THE PATIENT AND PAIN LEVEL WITHIN ESTABLISHED PARAMETERS BY END OF CERTIFICATION PERIOD. Goal Provider Goal - PATIENT/CAREGIVER WILL VERBALIZE UNDERSTANDING OF PRESSURE ULCER PREVENTION BY END OF THE EPISODE. Goal Provider Goal - PATIENT/CAREGIVER WILL VERBALIZE UNDERSTANDING OF EDUCATION PROVIDED ON MEDICATIONS BY THE END OF THE CERTIFICATION PERIOD. Goal Provider Goal - PATIENT WILL COMPLY WITH MEDICATION WHEN NURSE ADMINISTERS THROUGHOUT CERTIFICATION PERIOD. Progress Notes Progress Notes <paragraph>[Visit Date: 2024 by DEVIN BENNETT OT]:</paragraph><paragraph>OT RE-ASSESS (10/22/24) PATIENT HAS PARTICIPATED IN 3 OT SESSION TO DATE. PLAN OF CARE WAS INTERRUPTED DUE TO PATIENT'S RAPID ILLNESS AND DECLINE REQUIRING HOSPICE SERVICES WHERE PATIENT ENDED UP PASSING AFTER BEING HOME FOR 4 DAYS. PATIENT REQUIRED MISSED VISITS DUE TO SERVICES AND CARE NEEDED TO ATTEND TO AFTER THE OF HER SPOUSE. PATIENT HAS BEEN ABLE TO FOLLOW THROUGH WITH HOME EXERCISE PROGRAM THAT WAS INITIATED WITH WRITTEN ILLUSTRATIONS. SHE IS COMPLETING DAILY 10 REPETITIONS 1 TIME IN THE MORNING AND 1 TIME IN THE AFTERNOON. PATIENT REPORTS IT IS MORE DIFFICULT FOR HER IN THE AFTERNOON SHE FATIGUED AND HAS MORE ENERGY IN THE MORNING. EDUCATION ON PACING AND AND ALTERNATIVE WAS GIVEN THAT WASN'T INTENSIVE FOR HER TO COMPLETE IN THE AFTERNOON. PATIENT CONTINUES TO WORK ON TRANSFERS INCLUDING FROM HER [employer] SHOWER TRANSFERS. SHE RECENTLY JUST STARTED WITH [facility] [employer] [facility] AND WILL HAVE ASSISTANCE FOR SHOWER LEVEL BATHING. WRITTEN ILLUSTRATIONS PROVIDED TODAY FOR PATIENT TO C[place] WITH CAREGIVER SUCH HER SISTER OR FRIEND SHOULD THEY NEED TO ASSIST WITH SHOWER LEVEL BATHING. WILL NEED FURTHER EDUCATION ON THIS. PATIENT WOULD ALSO BENEFIT FROM A FINE MOTOR/HAND EXERCISES FOR STRENGTHENING WITH HER PINCH AND GRASP. SHE WILL SEE HER NEUROLOGIST ON 10/23 FOR AN UPDATE AND POTENTIALLY CHANGES TO HER MEDICATION REGIME. PATIENT IS LOOKING FOR A CHANGE DUE TO INCREASED MOVEMENTS AFFECTING HER FUNCTIONAL TASKS. PATIENT HAD A LAPSE IN OT SERVICES DUE TO DEALING WITH HER 'S ILLNESS RESULTING IN HIS TRANSITION TO HOSPICE AND RAPID DECLINE ENDING IN HIS . PATIENT CONTINUES TO MOURN HER WISHES AFFECTING HER MENTAL HEALTH ULTIMATELY AFFECTING HER PHYSICAL HEALTH. PATIENT CONTINUES TO REQUIRE CUEING AND CONTACT GUARD FOR MOST FUNCTIONAL TRANSFERS AND MOBILITY TASKS. SHE CONTINUES TO WORK ON INCREASING HER STRENGTH AND ENDURANCE FOR ADLS PARTICULARLY SHOWER LEVEL BATHING AND SIMPLE MEAL PREP TASKS SUCH SNACK RETRIEVAL. WOULD BENEFIT FOR 1 TIMES A WEEK X3 TO MEET GOALS.</paragraph> Encounters Start Date/Time End Date/Time Encounter Type Admission Type Attending [facility] Care Department Encounter ID Discharge Date Discharge Status Discharge Condition Discharge Reason Percent Goals Met 2024-09-20 00:00:00 2024-11-18 00:00:00 Outpatient [facility] [id number]
== END 2024-10-23 16:02 | disposition home or self-care (01) ==
LOC: HO.HSMS 15:20
PROVIDERS: PCP Internal Medicine; Visit Provider Psychiatry & Neurology Neurology
DX: G20.B2 Parkinson's disease with dyskinesia, with fluctuations (principal)
CPT/HCPCS: 99214; G2211

== ENCOUNTER → 2024-10-23 15:20 | Outpatient (BNVA) | payer MEDICARE, BC, SELFPAY | PROVIDERS: PCP Internal Medicine; Visit Provider Psychiatry & Neurology Neurology | DX: G20.B2 Parkinson's disease with dyskinesia, with fluctuations (principal) | CPT/HCPCS: 99212 ==

== ENCOUNTER 2025-03-06 10:17 | Outpatient (AMB) | payer MEDICARE, BC, SELFPAY ==
[2025-03-06 10:22] VITALS: BP 122/78; PULSE 78; O2SAT 96; BMI 31.3
--- NOTE | 2025-03-06 10:22 | A.OFFVIS_ITS ---
Vital Signs 03/06/25 10:22 Height 5 ft 2 in Weight 171 lb 4 oz BMI 31.3 BP 122/78 Blood Pressure Location Rt brachial Position Sitting Pulse 78 Pulse Source Pulse Oximeter Pulse Oximetry (%) 96 Oxygen Delivery Method Room Air Intake Visit Reasons: 4m follow up Intake Note: Follow up Parkinson's disease without dyskinesia, with fluctuations Hotel Services Supervisor Required: No Accompanied by: Son Allergies No Known Allergies Allergy (Verified 03/06/25 10:22) HPI Comments Details: 70y/o right handed female comes for follow up of Parkinsons disease.she is doing well and the extra tab at bedtime has helped. No falls..she has a CLIENT APPLICATION SUPPORT ENGINEER and friend that helps her. Her son lives with her.she is motivated - says she misses her . Recliner helps . No hallucinations she sleeps good History from last visit- Her 5 mths ago No falls she uses a walker . she has stiffness in her lower back Her Xray showed compression fractures . she Denies pain She is doing good. Memory is good. SLeep- good no active dreams - vivid dreams Mood- good She is motivated. she is trying tod o exercises that home Pt taught her No drooling. speech is good Handwriting- smaller She is independent in all ADLs.she uses a shower chair Tremors are well controlled. she is exercising regularly. No problem dressing or eating No hallucinations Bowel movements are stable. [facility] Medical History Parkinson's disease with fluctuating manifestations Sleep disorder Atrial fibrillation CVA (cerebral vascular accident) Arthritis Hypothyroidism Hyperlipidemia HTN (hypertension) Surgical History History of tooth extraction History of hip surgery Family History Father Cancer Mother HTN (hypertension) Thyroid disease Family/Other Seizures Family/Other Thyroid disease Social History Alcohol intake: current Alcohol intake frequency: 0-2 drinks per day Patient Tobacco Use Status: Never used Tobacco Physical Exam Vital Signs: Last Vital Signs Pulse 78 03/06/25 10:22 BP 122/78 03/06/25 10:22 Pulse Ox 96 03/06/25 10:22 Oxygen Delivery Method Room Air 03/06/25 10:22 BMI result Body Mass Index 31.3 Const General: cooperative, healthy appearing and comfortable Nutritional Appearance: body habitus not average Orientation/consciousness: patient oriented x3 Neuro Other: mildly decreased blink , facial expression speech normal Bradykinesia - r.L Mild to moderate dyskinesias FFM severely decreased R>LFoot taps decreased R>L gait slow small steps General: patient oriented x3 Assessment & Plan Assessment & Plan (1) Parkinson's disease with fluctuating manifestations: Code(s): G20.A2 - Parkinson's disease without dyskinesia, with fluctuations Category: Medical Plan sinemet 25/100 1 tab 5 times a day- 1-1 1/2 -1 -1 1/2 -1 Continue carbidopa/levodopa er 25/100 Consider james onapgo amantadine 100mg qd XR LS spine shows compression fractures - discussed about kyphoplasty , she is not in pain so declines F/u with cardiology SLeep study to r/o sleep apnea- normal Continue exercise home PT Coding Level of Care Code Est Pt Level 4 (24021) Complex EM visit Add On G2211 Diagnoses Parkinson's disease with fluctuating manifestations G20.A2
--- OUTSIDE RECORDS SUMMARY | 2025-03-17 20:00 | XMS_ITS | Clinical Summary ---
Author Organization Unknown Care Team Providers Care Washer And Crusher Tender Name Role Phone JAVIER AYALA DO Unavailable Unavailable SABRINA OT, DEVIN Unavailable Unavailbrian SHOEMAKER RN, SHERITA Unavailable Unavailable DES ([facility]) [facility] - PT, AZAR Unavailable U darwin VALDEZ ([facility]) [facility] - PT, JASPAL Unavailable Unavailable NNEKA ([facility]) [facility] [employer] FIELD COORDINATOR, JERRY Unavailable Un available Payers Payer Name Policy Type Policy Number Effective Date Expira tion Date MEDICARE - [facility] [facility] [id number] Problems Condition Name Condition Details Condition Category [...] MENTION OF FLUCTUATIONS Active 05-09 00:00: 00 HYPOTHYROIDI SM, UNSPECIFIED Active 05-09 00:00: 00 HYPERLIPIDEM IA, UNSPECIFIED Active 05-09 00:00: 00 SLEEP DISORDER, UNSPECIFIED Active 05-09 00:00: 00 UNSPECIFIED OSTEOARTHRIT IS, UNSPECIFIED SITE Active 05-09 00:00: 00 PRSNL HX OF TIA (TIA), AND CEREB INFRC W/O RESID DEFICITS Active 05-09 00:00: 00 PRESENCE OF RIGHT ARTIFICIAL HIP JOINT Active 05-09 00:00: 00 FERTILIZER SUPERVISOR (CURRENT) USE OF ANTICOAGULAN TS Active 05-09 00:00: 00 ALF (CURRENT) USE OF ASPIRIN Active 05-09 00:00: 00 Allergies, Adverse Reactions, Alerts Allergy Name Allergy Type Status Severity Reaction(s) Onset Date Inactive Date Treating Clinician Comments NKA Propensity to adverse reactions Active 2024-09 19:41:2 5 Medications Ordered Medication Name Filled Medication Name Start Date Stop Date Current Medication? Ordering Clinician Indication Dosage Frequency Signature (SIG) Comments Components atorvastati n 20 mg tablet 11-22 00:00: 00 01-15 23:59 :00 No [id number] 1 tablet BEDTIME 1 tablet BEDTIME (route: oral) Med Classific ation: Cardiovas cular Therapy Agents levothyroxi ne 75 mcg tablet 11-22 00:00: 00 01-15 23:59 :00 No [id number] 1 tablet DAILY 1 tablet DAILY (route: oral) Med Classific ation: Endocrine metronidazo le 0.75 % topical gel 11-22 00:00: 00 01-15 23:59 :00 No [id number] 1 cm DAILY 1 cm DAILY (route: topical) Med Classific ation: Dermatolo gical amantadine HCl 100 mg capsule 11-30 00:00: 00 01-15 23:59 :00 No [id number] 1 capsule DAILY 1 capsule DAILY (route: oral) Med Classific ation: Central Nervous System Agents aspirin 81 mg tablet,orlin yed release 11-30 00:00: 00 01-15 23:59 :00 No [id number] 1 tablet DAILY 1 tablet DAILY (route: oral) Med Classific ation: Hematolog ical Agents carbidopa 25 mg-levodopa 100 mg disintegrat ing tablet 11-30 00:00: 00 01-15 23:59 :00 No [id number] 1 tablet 4 TIMES DAILY 1 tablet 4 TIMES DAILY (route: oral) Med Classific ation: Central Nervous System Agents multivitami n with minerals tablet 11-30 00:00: 00 01-15 23:59 :00 No [id number] 1 tablet DAILY 1 tablet DAILY (route: oral) Med Classific ation: Electroly te Balance-N utritiona l Products Senna with Docusate Sodium 8.6 mg-50 mg tablet 11-30 00:00: 00 01-15 23:59 :00 No [id number] 1 tablet BEDTIME 1 tablet BEDTIME (route: oral) Med Classific ation: Gastroint estinal Therapy Agents Tylenol 325 mg tablet 11-30 00:00: 00 01-15 23:59 :00 No [id number] 2 tablet NEEDED 2 tablet NEEDED (route: oral) Med Classific ation: Analgesic , Anti-infl ammatory or Antipyret ic Eliquis 5 mg tablet 01-05 00:00: 00 01-15 23:59 :00 No [id number] 1 tablet 2 TIMES DAILY 1 tablet 2 TIMES DAILY (route: oral) Med Classific ation: Hematolog ical Agents metoprolol succinate ER 25 mg tablet,exte nded release 24 hr 01-05 00:00: 00 01-15 23:59 :00 No [id number] 1 tablet DAILY 1 tablet DAILY (route: oral) Med Classific ation: Cardiovas cular Therapy Agents amantadine HCl 100 mg capsule 02-01 00:00: 00 09-17 23:59 :00 No [id number] 1 capsule DAILY 1 capsule DAILY (route: oral) Med Classific ation: Central Nervous System Agents aspirin 81 mg tablet,orlin yed release 02-01 00:00: 00 09-17 23:59 :00 No [id number] 1 tablet DAILY 1 tablet DAILY (route: oral) Med Classific ation: Hematolog ical Agents atorvastati n 20 mg tablet 02-01 00:00: 00 09-17 23:59 :00 No [id number] 1 tablet BEDTIME 1 tablet BEDTIME (route: oral) Med Classific ation: Cardiovas cular Therapy Agents carbidopa 25 mg-levodopa 100 mg disintegrat ing tablet 02-01 00:00: 00 09-17 23:59 :00 No [id number] 1 tablet 4 TIMES DAILY 1 tablet 4 TIMES DAILY (route: oral) Med Classific ation: Central Nervous System Agents Eliquis 5 mg tablet 02-01 00:00: 00 09-17 23:59 :00 No [id number] 1 tablet 2 TIMES DAILY 1 tablet 2 TIMES DAILY (route: oral) Med Classific ation: Hematolog ical Agents levothyroxi ne 75 mcg tablet 02-01 00:00: 00 09-17 23:59 :00 No [id number] 1 tablet DAILY 1 tablet DAILY (route: oral) Med Classific ation: Endocrine metoprolol succinate ER 25 mg tablet,exte nded release 24 hr 02-01 00:00: 00 09-17 23:59 :00 No [id number] 1 tablet DAILY 1 tablet DAILY (route: oral) Med Classific ation: Cardiovas cular Therapy Agents Multivitami n 50 Plus tablet 02-01 00:00: 00 09-17 23:59 :00 No [id number] 1 tablet DAILY 1 tablet DAILY (route: oral) Med Classific ation: Electroly te Balance-N utritiona l Products Senna with Docusate Sodium 8.6 mg-50 mg tablet 02-01 00:00: 00 09-17 23:59 :00 No [id number] 1 tablet DAILY 1 tablet DAILY (route: oral) Med Classific ation: Gastroint estinal Therapy Agents amantadine HCl 100 mg capsule 09-20 00:00: 00 Yes [id number] 1 capsule DAILY 1 capsule DAILY (route: oral) Med Classific ation: Central Nervous System Agents aspirin 81 mg tablet,orlin yed release 09-20 00:00: 00 Yes [id number] 1 tablet DAILY 1 tablet DAILY (route: oral) Med Classific ation: Hematolog ical Agents atorvastati n 20 mg tablet 09-20 00:00: 00 Yes [id number] 1 tablet DAILY 1 tablet DAILY (route: oral) Med Classific ation: Cardiovas cular Therapy Agents carbidopa 25 mg-levodopa 100 mg disintegrat ing tablet 09-20 00:00: 00 12-24 23:59 :00 No [id number] 1 tablet DIRECTED 1 tablet DIRECTED (route: oral) Med Classific ation: Central Nervous System Agents Eliquis 5 mg tablet 09-20 00:00: 00 Yes [id number] 1 tablet 2 TIMES DAILY 1 tablet 2 TIMES DAILY (route: oral) Med Classific ation: Hematolog ical Agents levothyroxi ne 75 mcg tablet 09-20 00:00: 00 Yes [id number] 1 tablet DAILY 1 tablet DAILY (route: oral) Med Classific ation: Endocrine metoprolol succinate ER 25 mg tablet,exte nded release 24 hr 09-20 00:00: 00 Yes [id number] 1 tablet DAILY 1 tablet DAILY (route: oral) Med Classific ation: Cardiovas cular Therapy Agents Multivitami n 50 Plus tablet 09-20 00:00: 00 Yes [id number] 1 tablet DAILY 1 tablet DAILY (route: oral) Med Classific ation: Electroly te Balance-N utritiona l Products cyanocobala min (vit B-12) 1,000 mcg/mL injection solution 09-20 00:00: 00 Yes [id number] Per instruc tions MONTHLY Per instructio ns MONTHLY (route: injection) Med Classific ation: Electroly te Balance-N utritiona l Products carbidopa 25 mg-levodopa 100 mg disintegrat ing tablet 12-26 00:00: 00 Yes [id number] 1 tablet DIRECTED 1 tablet DIRECTED (route: oral) Med Classific ation: Central Nervous System Agents Immunizations Ordered Immunization Name Filled Immunization Name Date Status Comments Refusal Reason PNEUMOCOCCAL (PPV), PPV 2023-09-19 00:00:00 COVID-19, COVID-19 2023-03-28 00:00:00 Vital Signs Vital Name Observation Time Observation Value Commen ts Temperature 2025-02-19 11:10:00.000 98.2 [degF] Temperature 2025-01-24 10:44:00.000 98 [degF] Pulse 2025-02-19 11:10:00.000 68 /min Pulse 2025-01-24 10:44:00.000 62 /min O2 Saturation (%) 2025-02-19 11:10:00.000 97 % O2 Saturation (%) 2025-01-24 10:44:00.000 98 % Respirations 2025-02-19 11:10:00.000 20 /min Systolic Blood Pressure 2025-02-19 11:10:00.000 112 mm [Hg] Systolic Blood Pressure 2025-01-24 10:44:00.000 108 mm [Hg] Diastolic Blood Pressure 2025-02-19 11:10:00.000 70 mm [Hg] Diastolic Blood Pressure 2025-01-24 10:44:00.000 62 mm [Hg] Plan of Treatment Planned Activity [...] HEALTH.] Future Scheduled Test SKILLED NU RSE TO ASSESS ANXIETY AND PROVIDE ASSISTANCE TO PATIENT FOR UNDERSTANDING AND MANAGEMENT OF FEELINGS. [code = SKILLED NURSE TO ASSESS ANXIETY AND PROVIDE ASSISTANCE TO PATIENT FOR UNDERSTANDING AND MANAGEMENT OF FEELINGS.] Future Scheduled Test SKILLED NU RSE FOR O/A, TEACHING AND MANAGEMENT OF CKD FOR EARLY IDENTIFICATION OF EXACERBATION OF DISEASE PROCESS [code = SKILLED NURSE FOR O/A, TEACHING AND MANAGEMENT OF CKD FOR EARLY IDENTIFICATION OF EXACERBATION OF DISEASE PROCESS] Future Scheduled Test SKILLED NU RSE FOR O/A AND TEACHING OF ENDOCRINE SYSTEM TO IDENTIFY CHANGES ASSOCIATED WITH EXACERBATION OF HYPOTHYROIDISM FOR EARLY INTERVENTION OF COMPLICATIONS. [code = SKILLED NURSE FOR O/A AND TEACHING OF ENDOCRINE SYSTEM TO IDENTIFY CHANGES ASSOCIATED WITH EXACERBATION OF HYPOTHYROIDISM FOR EARLY INTERVENTION OF COMPLICATIONS.] Future Scheduled Test SKILLED NU RSE TO [...] FIBRILLATION.] Future Scheduled Test SKILLED NU RSE FOR O/A AND SKILLED TEACHING RELATED TO SIGNS AND SYMPTOMS AND MANAGEMENT OF ANEMIA. [code = SKILLED NURSE FOR O/A AND SKILLED TEACHING RELATED TO SIGNS AND SYMPTOMS AND MANAGEMENT OF ANEMIA.] Future Scheduled Test PATIENT IBRAHIM S A [...] MAINTAIN SITUATIONAL AWARENESS AND WILL NOTIFY CLINICAL LOADING MACHINE OPERATOR HELPER AND PHYSICIAN/PROVIDER WITH ANY CHANGE IN CONDITION. [code = SKILLED NURSE TO PERFORM ENVIRONMENTAL SAFETY RISK ASSESSMENT AND FALL RISK ASSESSMENT AND PROVIDE INSTRUCTION TO IMPLEMENT ENVIRONMENTAL SAFETY AND FALL PREVENTION STRATEGIES THROUGHOUT THE CERTIFICATION PERIOD. SKILLED NURSE WILL MAINTAIN SITUATIONAL AWARENESS AND WILL NOTIFY CLINICAL LOADING MACHINE OPERATOR HELPER AND PHYSICIAN/PROVIDER WITH ANY CHANGE IN CONDITION.] Future Scheduled Test SKILLED NU RSE FOR OBSERVATION AND ASSESSMENT OF PATIENT S PAIN LEVEL AND EFFECTIVENESS OF PAIN MANAGEMENT REGIMEN. SKILLED NURSE TO INSTRUCT PATIENT/CAREGIVER REGARDING PHARMACOLOGIC AND NON-PHARMACOLOGIC PAIN CONTROL MEASURES. SKILLED NURSE TO REPORT TO PHYSICIAN IF PAIN LEVEL IS OUTSIDE OF ESTABLISHED PARAMETERS. [code = SKILLED NURSE FOR OBSERVATION AND ASSESSMENT OF PATIENT S PAIN LEVEL AND EFFECTIVENESS OF PAIN MANAGEMENT [...] MEDICATION ADMINISTRATION PER MEDICATION LIST TO BE PERFORMED, B-12 INJECTION MONTHLY [code = SKILLED NURSE FOR MEDICATION ADMINISTRATION PER MEDICATION LIST TO BE PERFORMED, B-12 INJECTION MONTHLY] Goal 2024-11-14 Patient Goal - TO GET STRONG ER Goal 2025-01-16 Patient Goal - TO GET STRONG ER Goal Patient Goal - TO GET STRONG ER Goal Provider Goal - A PLAN OF CARE WILL BE ESTABLISHED THAT MEETS PATIENT'S CUSTODIAL NEEDS AND INCLUDES PATIENT GOAL FOR HOME HEALTH. Goal Provider Goal - SYMPTOMS OF ANXIETY ARE IDENTIFIED AND INTERVENTIONS INITIATED TO ENABLE PATIENT TO UNDERSTAND AND MANAGE FEELINGS THROUGHOUT EPISODE. Goal Provider Goal - PATIENT/CAREGIVER WILL [...] THE CERTIFICATION PERIOD. Goal Provider Goal - PATIENT/CARGIVER WILL VERBALIZE UNDERSTANDING OF ANEMIA INCLUDING SIGNS AND SYMPTOMS, MANAGEMENT OF [...] MEDICATION WHEN NURSE ADMINISTERS THROUGHOUT CERTIFICATION PERIOD. Encounters Start Date/Time End Date/Time Encounter Type Admission Type Attending [facility] Care Department Encounter ID Discharge Date Discharge Status Discharge Condition Discharge Reason Percent Goals Met 2025-01-18 00:00:00 2025-03-18 00:00:00 Outpatient RECERTIFIC SHERITA [facility] [id number] [phone]
== END 2025-03-06 10:45 | disposition home or self-care (01) ==
LOC: HO.HSMS 10:18
PROVIDERS: PCP Internal Medicine; Visit Provider Psychiatry & Neurology Neurology
DX: G20.A2 Parkinson's disease without dyskinesia, with fluctuations (principal)
CPT/HCPCS: 99214; G2211

== ENCOUNTER → 2025-03-06 10:17 | Outpatient (BNVA) | payer MEDICARE, BC, SELFPAY | PROVIDERS: PCP Internal Medicine; Visit Provider Psychiatry & Neurology Neurology | DX: G20.A2 Parkinson's disease without dyskinesia, with fluctuations (principal) | CPT/HCPCS: 99212 ==